=== PATIENT | male | born 1990 | race Caucasian/White ===

== ENCOUNTER 2024-01-01 21:32 | Emergency (ER) | payer MEDICAID, OTHER ==
[~2024-01-01] VITALS: Ht 175.3 cm; Wt 90.0 kg
[2024-01-01 21:41] VITALS: O2SAT 96
[2024-01-01 23:50] LABS: BASOPHILS % 0.4 % (0.0-2.0); EOSINOPHILS % 0.8 % (0.0-5.0); HEMATOCRIT. 38.3 % (42.0-52.0); HEMOGLOBIN. 12.7 g/dL (14.0-18.0); LYMPHOCYTES % 28.8 % (20.0-50.0); MEAN CORPUSCULAR HEMOGLOBIN 29.2 pg (28.0-32.0); MEAN CORPUSCULAR HGB CONC 33.1 g/dL (31.0-37.0); MEAN CORPUSCULAR VOLUME 88.2 fL (80.0-94.0); MEAN PLATELET VOLUME 8.3 fl (7.4-10.4); MONOCYTES % 6.6 % (2.0-8.0); NEUTROPHILS % 63.4 % (40.0-76.0); PLATELET 243 x1000/uL (130-400); RED BLOOD CELL COUNT 4.35 mill/uL (4.7-6.1); RED CELL DISTRIBUTION WIDTH 15.5 % (11.6-14.6); WHITE BLOOD COUNT 10.8 x1000/uL (4.5-11.0)
[2024-01-02 00:10] LABS: ALANINE AMINOTRANSFERASE 26 IU/L (10-49); ALBUMIN 4.3 g/dL (3.2-4.8); ASPARTATE AMINOTRANSFERASE 30 IU/L (<34); BILIRUBIN TOTAL 0.3 mg/dL (0.1-1.0); CALCIUM 7.9 mg/dL (8.7-10.4); CARBON DIOXIDE 25 mEq/L (21-32); CHLORIDE 110 mEq/L (98-107); ETHANOL BLOOD 388 mg/dL (<10); GLUCOSE 159 mg/dL (70-105); POTASSIUM 3.8 mEq/L (3.5-5.1); PROTEIN TOTAL 6.9 g/dL (6.0-8.3); SODIUM 144 mEq/L (136-145); UREA NITROGEN BLOOD 9 mg/dL (9-23)
[2024-01-02] MEDS: ONDANSETRON HCL 4MG/2ML INJ IV STA (00:14)
[2024-01-02] MEDS: FOLIC ACID 1 MG, THIAMINE HCL 100 MG, MVI, ADULT NO.1 10 ML in DEXTROSE 5% WATER 1,000 ML IV ONE (01:27)
[2024-01-02 04:59] VITALS: BP 103/49; PULSE 80; RESP 12; TEMP 98
== END 2024-01-02 07:08 | disposition left against medical advice (07) ==
LOC: ER 21:32 → CANBEDREQ 01-02 07:07 → ER 01-02 07:08
DX: T51.91XA Toxic effect of unspecified alcohol, accidental (unintentional), initial encounter (principal); J96.91 Respiratory failure, unspecified with hypoxia; Y92.89 Other specified places as the place of occurrence of the external cause; Y90.8 Blood alcohol level of 240 mg/100 ml or more
CPT/HCPCS: 80053; 80320; 83605; 85025; 36415; 71045; 70450; 99291; 96365; 96375; J3490 ×2; J3411; J7070; J2405; Z7610; G0480

== ENCOUNTER 2024-01-02 09:22 | Emergency (ER) | payer MEDICAID, OTHER ==
[~2024-01-02] VITALS: Ht 177.8 cm; Wt 80.0 kg
[2024-01-02 09:26] VITALS: O2SAT 100
[2024-01-02 10:07] LABS: BASOPHILS % 1.1 % (0.0-2.0); EOSINOPHILS % 0.3 % (0.0-5.0); HEMOGLOBIN. 14.3 g/dL (14.0-18.0); LYMPHOCYTES % 15.8 % (20.0-50.0); MEAN CORPUSCULAR HEMOGLOBIN 28.6 pg (28.0-32.0); MEAN CORPUSCULAR HGB CONC 32.5 g/dL (31.0-37.0); MEAN CORPUSCULAR VOLUME 87.8 fL (80.0-94.0); MEAN PLATELET VOLUME 8.6 fl (7.4-10.4); MONOCYTES % 4.3 % (2.0-8.0); NEUTROPHILS % 78.5 % (40.0-76.0); PLATELET 300 x1000/uL (130-400); RED BLOOD CELL COUNT 5.01 mill/uL (4.7-6.1); RED CELL DISTRIBUTION WIDTH 16.4 % (11.6-14.6); WHITE BLOOD COUNT 12.7 x1000/uL (4.5-11.0)
[2024-01-02 10:15] LABS: BG BASE EXCESS -5.2 mmol/L (-2.0-2.0); BG CARBOXYHEMOGLOBIN 0.9 % (0.5-1.5); BG DEOXYHEMOGLOBIN 11.6 % (0.0-5.0); BG FRACTION INSPIRED OXYGEN 21; BG HCO3 ACT 20.8 mmol/L (22.0-26.0); BG METHEMOGLOBIN 0.1 % (0.0-1.5); BG OXYGEN SATURATION 88.3 % (92.0-98.5); BG OXYHEMOGLOBIN 87.4 % (94.0-97.0); BG PCO2 42.1 mmHg (35.0-45.0); BG PH 7.311 (7.350-7.450); BG PO2 65.6 mmHg (75.0-100.0); BG SAMPLE SITE RIGHT RADIAL; BG VENT MODE ROOM AIR
[2024-01-02 10:16] LABS: AMMONIA < 10 uMol/L (<32)
[2024-01-02 10:24] LABS: ALANINE AMINOTRANSFERASE 33 IU/L (10-49); ALBUMIN 4.6 g/dL (3.2-4.8); ASPARTATE AMINOTRANSFERASE 39 IU/L (<34); BILIRUBIN TOTAL 0.3 mg/dL (0.1-1.0); CALCIUM 8.3 mg/dL (8.7-10.4); CARBON DIOXIDE 20 mEq/L (21-32); CHLORIDE 110 mEq/L (98-107); CREATININE 0.7 mg/dL (0.6-1.3); GLUCOSE 113 mg/dL (70-105); POTASSIUM 3.9 mEq/L (3.5-5.1); PROTEIN TOTAL 7.6 g/dL (6.0-8.3); SODIUM 143 mEq/L (136-145); UREA NITROGEN BLOOD 7 mg/dL (9-23)
[2024-01-02 10:28] LABS: TROPONIN I HIGH SENSITIVITY 54 ng/L (3.0-53)
[2024-01-02 10:29] LABS: ETHANOL BLOOD 421 mg/dL (<10)
[2024-01-02 14:00] VITALS: BP 102/72; PULSE 95; RESP 17; TEMP 98.2
== END 2024-01-02 15:05 | disposition left against medical advice (07) ==
LOC: ER 09:22 → EDBEDREQ 09:59 → EDBEDREQTM 11:15 → EDBEDREQ 11:15 → ER 15:05 → CANBEDREQ 01-03 21:23
DX: R55 Syncope and collapse (principal); R56.9 Unspecified convulsions; R79.89 Other specified abnormal findings of blood chemistry; F10.129 Alcohol abuse with intoxication, unspecified; Y90.8 Blood alcohol level of 240 mg/100 ml or more
CPT/HCPCS: 36415; 36600; 71045; 80053; 80320; 82140; 82375; 82805; 83880; 84484; 85025; 93005; 99285; G0480

== ENCOUNTER 2024-01-02 21:31 | Emergency (ER) | payer MEDICAID, OTHER ==
[~2024-01-02] VITALS: Ht 172.7 cm; Wt 77.0 kg
[2024-01-02 21:35] VITALS: O2SAT 95
[2024-01-02 21:58] VITALS: BP 140/82; PULSE 106; RESP 18; TEMP 98.3
[2024-01-02 23:54] LABS: BASOPHILS % 0.5 % (0.0-2.0); EOSINOPHILS % 0.3 % (0.0-5.0); HEMATOCRIT. 41.9 % (42.0-52.0); LYMPHOCYTES % 31.1 % (20.0-50.0); MEAN CORPUSCULAR HGB CONC 33.3 g/dL (31.0-37.0); MEAN CORPUSCULAR VOLUME 87.1 fL (80.0-94.0); MEAN PLATELET VOLUME 8.3 fl (7.4-10.4); MONOCYTES % 5.9 % (2.0-8.0); NEUTROPHILS % 62.2 % (40.0-76.0); PLATELET 295 x1000/uL (130-400); RED BLOOD CELL COUNT 4.81 mill/uL (4.7-6.1); RED CELL DISTRIBUTION WIDTH 15.9 % (11.6-14.6); WHITE BLOOD COUNT 9.8 x1000/uL (4.5-11.0)
[2024-01-03 00:18] LABS: ALANINE AMINOTRANSFERASE 33 IU/L (10-49); ALBUMIN 4.6 g/dL (3.2-4.8); ASPARTATE AMINOTRANSFERASE 40 IU/L (<34); BILIRUBIN TOTAL 0.2 mg/dL (0.1-1.0); CALCIUM 8.4 mg/dL (8.7-10.4); CARBON DIOXIDE 26 mEq/L (21-32); CHLORIDE 111 mEq/L (98-107); CREATININE 0.8 mg/dL (0.6-1.3); ETHANOL BLOOD 349 mg/dL (<10); GLUCOSE 112 mg/dL (70-105); POTASSIUM 3.5 mEq/L (3.5-5.1); PROTEIN TOTAL 7.5 g/dL (6.0-8.3); SODIUM 147 mEq/L (136-145); UREA NITROGEN BLOOD 8 mg/dL (9-23)
[2024-01-03 01:06] LABS: TROPONIN I HIGH SENSITIVITY 63 ng/L (3.0-53)
[2024-01-03] MEDS ORDERED: SODIUM CHLORIDE 0.9% 1,000 ML IV ONE (01:15)
== END 2024-01-03 01:30 | disposition home or self-care (01) ==
LOC: ER 21:31
DX: F10.129 Alcohol abuse with intoxication, unspecified (principal); Y90.8 Blood alcohol level of 240 mg/100 ml or more
CPT/HCPCS: 80053; 80320; 85025; 36415 ×2; 99284; 84484; 93005; J7030; G0480

== ENCOUNTER 2024-01-08 23:33 | Emergency (ER) | payer MEDICAID, OTHER ==
[~2024-01-08] VITALS: Ht 170.2 cm; Wt 91.0 kg
[2024-01-09 00:19] VITALS: BP 154/88; PULSE 92; RESP 16; TEMP 98.6; O2SAT 98
== END 2024-01-09 06:37 | disposition home or self-care (01) ==
LOC: ER 23:33
DX: T51.0X1A Toxic effect of ethanol, accidental (unintentional), initial encounter (principal); Y92.9 Unspecified place or not applicable
CPT/HCPCS: 36415; 80320; 99283; G0480

== ENCOUNTER 2024-01-14 23:05 | Emergency (ER) | payer MEDICAID ==
[~2024-01-14] VITALS: Ht 177.8 cm; Wt 91.0 kg
[2024-01-14 23:10] VITALS: O2SAT 99
[2024-01-15 03:08] VITALS: TEMP 98.4
[2024-01-15 03:48] VITALS: BP 150/88; PULSE 120; RESP 20
== END 2024-01-15 01:05 | disposition home or self-care (01) ==
LOC: ER 23:05
DX: F10.129 Alcohol abuse with intoxication, unspecified (principal); Y90.9 Presence of alcohol in blood, level not specified
CPT/HCPCS: 99285